=== PATIENT | male | born 1975 | race Caucasian/White ===

== ENCOUNTER 2016-10-16 14:36 | Inpatient (IN) ==
[2016-10-16] MEDS ORDERED: ACETAMINOPHEN 500 MG TABLET PO PRN (15:02)
[2016-10-16] MEDS ORDERED: ONDANSETRON 4 MG/2 ML VIAL IV PRN (15:02)
[2016-10-16] MEDS ORDERED: VANCOMYCIN INJ 1,000 MG in SODIUM CHLORIDE 0.9% 250 ML IV STA (15:02)
--- NOTE | 2016-10-16 15:13 | Emergency Department Note ---
George Mata Brittany, am scribing for, and in the presence of, Oswaldo Negrete MD 15:02. Caden Mata Sunil, MD, personally performed the services described in this documentation, ascribed by Mali Vazquez in my presence, and it is both accurate and complete 512 . Arrival - Arrival Chief Complaint: Abscess Stated Complaint: abscess ED Nursing Triage Note: c/o abscess to upper abdomen onset 10/02/16. Mode of Arrival: Ambulatory Limitations: No Limitations Source: Patient, RN Notes Reviewed Time Seen by Provider: 10/16/16 14:58 - History of Present Illness HPI Narrative: Patient is a 41 y/o white male presenting to the ED by EMS with c/o upper abdominal abscess which began on 10/02/16. Patient reports that despite antibiotic therapy, the area has began to increase in redness, size, and has become hard/tender to touch. Pain is so severe, hindering him to get adequate rest at night. He has tried draining this area at home, but with no success. Patient appears to have a spreading Cellulitis of the abdomen with an area of enduration, may be a possible deep rooted abdominal abscess. Patient has no other complaint/pain. Onset (ago): day(s) Consistency: constant Allergies/Adverse Reactions: Allergies Allergy/AdvReac Type Severity Reaction Status Date / Time Penicillins Allergy ANAPHYLAXIS Verified 10/16/16 14:52 Review of System - Review of System 12 point system: reviewed and no additional remarkable complaints except as stated - Review of System Constitutional: Absent: chills, fever Eyes: Absent: vision change Head/Ears/Nose/Throat: Absent: nasal drainage, sore throat Respiratory: Absent: respiratory distress Cardiovascular: Absent: chest pain Gastrointestinal: Present: abdominal pain. Absent: nausea, vomiting, diarrhea, constipation Genitourinary male: Absent: urgency, dysuria, frequency Musculoskeletal: Absent: arm pain, back pain, leg pain, neck pain Skin: Present: as per HPI (abscess to the abdomen) Medical,Surgical,& Family Hx - Medical History Medical History: noncontributory - Surgical History Surgical History: noncontributory - Family History Family History: noncontributory - Social History Smoking Status: Never smoker Frequency of Alcohol Use: None Type of Drug Use: None Exam Vital Signs: Vital Signs Temperature 99.2 F 10/16/16 14:36 Pulse Rate 93 H 10/16/16 14:36 Respiratory Rate 20 10/16/16 14:36 Blood Pressure 129/82 10/16/16 14:36 O2 Sat by Pulse Oximetry 97 10/16/16 14:36 - General General appearance: alert, in no apparent distress - Head Head exam: Present: atraumatic, normocephalic, normal inspection - Eye Eye exam: Present: normal appearance, PERRL, EOMI - ENT ENT exam: Present: normal exam, normal oropharynx - Neck Neck exam: Present: normal inspection, full ROM, trachea midline - Chest Chest inspection: Present: normal inspection, symmetric chest wall rise - Respiratory Respiratory exam: Present: normal lung sounds bilaterally - Cardiovascular Cardiovascular exam: Present: regular rate, normal rhythm, normal heart sounds - Abdominal Exam Abdominal exam: Present: soft, tenderness (upper abdominal tenderness to palpation at site of abscess), normal bowel sounds, other (palpable hardness at abscess site, erythema. Patient appears to have a spreading cellulitis of the abdomen with an area of enduration, possible deep rooted abdominal abscess) - Extremities Exam Extremities exam: Present: normal inspection - Back Exam Back exam: Present: normal inspection - Neurological Exam Neurological exam: Present: alert, oriented X3, CN II-XII intact. Absent: motor sensory deficit - Psychiatric Psychiatric exam: Present: normal affect, normal mood - Skin Skin exam: Present: warm, dry, other (Patient appears to have a spreading cellulitis of the abdomen with an area of enduration, possible deep rooted abdominal abscess) Results - Impressions This patient had incision and drainage of this abscess on the abdominal wall twice, and he finished 2 courses of antibiotic but still has a lot of induration and spreading cellulitis on the abdominal wall I have admitted him to Dr. Dr. Waggoner with a diagnosis of cellulitis of the abdominal wall possible deep-rooted abscess failed outpatient treatment Disposition Clinical Impression: Cellulitis Case discussed with: patient Disposition: Still a Patient
[2016-10-16 15:37] LABS: Basophils # 0.1 10*3/uL (0.0-0.2); Basophils % 0.4 % (0.0-0.8); Eosinophils # 0.1 10*3/uL (0.0-0.87); Eosinophils % 0.9 % (0.00-10.9); Hematocrit 43.1 VOL% (42.0-52.0); Hemoglobin 15.1 GM/DL (14.0-18.0); Immature Granulocytes % 0.5 %; Immature Granulocytes Absolute 0.06 #; Lymphocytes # 2.2 10*3/uL (1.4-4.0); Lymphocytes % 17.1 % (21.2-54.2); Mean Corpuscular Hemoglobin 31 PG (27-34); Mean Corpuscular Volume 87.1 FL (87-102); Mean Platelet Volume 9.6 FL (9.6-12.0); Monocytes # 0.6 10*3/uL (0.11-0.8); Neutrophils # 9.6 10*3/uL (1.4-7.4); Neutrophils % 76.1 % (38.7-73.9); Platelet Count 297 T/CUMM (130-400); Red Blood Count 4.95 MC/CUMM (3.8-5.5); Red Cell Distribution Width 12.2 % (9.3-17.3); White Blood Count 12.6 T/CUMM (4-12)
[2016-10-16] MEDS ORDERED: VANCOMYCIN 1,000 MG VIAL ONE (15:40)
[2016-10-16 15:55] LABS: Albumin 3.9 G/DL (3.4-5.0); Bilirubin,Direct 0.2 MG/DL (0.0-0.20); Bilirubin,Indirect 0.5 MG/DL (0.0-1.0); Bilirubin,Total 0.7 MG/DL (0.2-1.0); Calcium 8.8 MG/DL (8.5-10.1); Osmolality,Calculated 278.4 MOS/KG (273-304); Total Protein 7.2 G/DL (6.4-8.3)
[2016-10-16 15:58] LABS: Lactic Acid 1.2 MMOL/L (0.4-2.0)
[2016-10-16] MEDS ORDERED: ACETAMINOPHEN 500 MG TABLET ONE (16:06)
--- NOTE | 2016-10-16 21:28 | General Surgery Consult Note ---
Assessment and Plan (1) Abscess Status: Acute Assessment and plan: This patient is admitted with an abscess of the abdominal wall. I have recommended an incision and drainage in the operating room tomorrow. The patient is agreeable to this. Current Visit: Yes History of Present Illness Chief complaint: abdominal pain History of present illness: Mr. Nunez is a 41 year old male with no past medical history admitted to the hospital with cellulitis of his abdominal wall. He has been treated in the past with incision and drainage in the ER. Cultures grew MRSA. He has been on oral bactrim, but his pain has been worsening. He was admitted with fevers. Home Medications Medication Instructions Recorded Confirmed Type Clindamycin HCl [Clindamycin Cap] 300 mg PO Q8HR 10/16/16 10/16/16 History FLUoxetine [PROzac] 10 mg PO DAILY 10/16/16 10/16/16 History Allergies Allergy/AdvReac Type Severity Reaction Status Date / Time Penicillins Allergy ANAPHYLAXIS Verified 10/16/16 14:52 Medical,Surgical,& Family Hx - Medical History Gastrointestinal: History of: GI Problems (IBS) - Surgical History HEENT Surgeries: Surgical HX of: Tonsilectomy & Adenoidectomy Abdominal Surgeries: Surgical HX of: Cholecystectomy - Social History Smoking Status: Never smoker Frequency of Alcohol Use: None Type of Drug Use: None - Constitutional Constitutional: Present: as per HPI - EENT Nose, mouth and throat: Present: as per HPI - Cardiovascular Cardiovascular: Present: as per HPI - Respiratory Respiratory: Present: as per HPI - Gastrointestinal Gastrointestinal: Present: as per HPI - Genitourinary Genitourinary: Present: as per HPI - Musculoskeletal Musculoskeletal: Present: as per HPI - Neurological Neurological: Present: as per HPI - Endocrine Endocrine: Present: as per HPI Hematologic/Lymphatic: Present: as per HPI Exam - Constitutional Vitals: Period Temp Pulse Resp BP Sys/Ragsdale Pulse Ox Last 24 Hr 98.7 F-102.0 F 90-94 16-20 119-129/70-82 95-98 General appearance: no acute distress, over weight - Head Head exam: Present: normal inspection, normocephalic - Eye Eye exam: Present: EOMI Pupils: Present: ADAM - ENT ENT exam: Present: normal exam Mouth exam: Present: normal external inspection, normal voice - Neck Neck exam: Present: normal inspection, trachea midline - Respiratory Respiratory exam: Present: clear to auscultation bilaterally. Absent: accessory muscle use, chest wall tenderness - Cardiovascular Cardiovascular exam: Present: RRR. Absent: systolic murmur, tachycardia - GI/Abdominal GI/Abdominal exam: Present: tenderness (tenderness over the abdominal wall), soft, other (There is an abscess of the abdominal wall measuring 8 x 5cm with induration and fluctuance) - Extremities Exam Extremities exam: Present: normal inspection, normal capillary refill - Back Exam Back exam: Present: normal inspection - Neurological Exam Neurological exam: Present: alert, oriented X3 Speech: Present: normal - Skin Skin exam: Present: normal color, warm Quality Measures - VTE Contraindication to Pharmacological VTE Prophylaxis: Clinical assessment deems Pt at low risk, no prophalaxis needed Results - Labs CBC & BMP: 10/16/16 15:27 10/16/16 15:27
[2016-10-16] MEDS: HYDROmorphone 2 MG/1 ML VIAL IV PRN (22:32)
[2016-10-16] MEDS: VANCOMYCIN INJ 1,250 MG in SODIUM CHLORIDE 0.9% 250 ML IV SCH (23:10)
[2016-10-17] MEDS ORDERED: LORazepam 1 MG TABLET PO ONE (05:49)
[2016-10-17] MEDS ORDERED: FAMOTIDINE 20 MG TABLET PO ONE (05:49)
[2016-10-17] MEDS ORDERED: BUPIVACAINE 0.25% 50 ML VIAL ONE (06:33)
[2016-10-17] MEDS ORDERED: LIDOCAINE 2% 5 ML VIAL ONE (07:05)
[2016-10-17] MEDS ORDERED: PROPOFOL 200 MG/20 ML VIAL IV ONE (07:05)
[2016-10-17] MEDS ORDERED: KETOROLAC 30 MG/1 ML VIAL ONE (07:05)
[2016-10-17] MEDS ORDERED: ONDANSETRON 4 MG/2 ML VIAL ONE ×2 (07:05→08:18)
--- NOTE | 2016-10-17 07:32 | Family Practice Progress Note ---
Family Practice - PN: Subj Interval history: Patient was taken surgery before I could see the patient. Exam (Progress Note) - Constitutional Vitals: Period Temp Pulse Resp BP Sys/Ragsdale Pulse Ox Last 24 Hr 97.6 F-102.0 F 68-94 16-20 106-135/70-86 95-98 Results - Labs CBC & BMP: 10/16/16 15:27 10/16/16 15:27 Quality Measures - VTE Contraindication to Pharmacological VTE Prophylaxis: Clinical assessment deems Pt at low risk, no prophalaxis needed
--- NOTE | 2016-10-17 07:35 | Operative Note ---
Date of procedure: 10/17/16 Pre-op diagnosis: Abdominal wall abscess Post-op diagnosis: same Procedure: Preoperative diagnosis Abdominal wall abscess Postoperative diagnosis Same Procedures performed Incision and drainage of complex abdominal wall abscess Findings A large abscess cavity was multiloculated was opened up in the abdominal wall subcutaneous tissue. Pus was drained and sent for cultures. Complications None apparent Specimen Cultures Anesthesia General LMA Blood loss Minimal Indications Abdominal wall abscess Description of procedure The patient was taken to the operating room and transferred to the operating table in supine position. Pressure points were padded and SCDs were placed to bilateral lower extremities. General anesthesia was administered with an LMA and the abdomen was prepped chlorhexidine and draped sterilely. Timeout was called. The abscess was drained with an 11 blade scalpel. Loculations were broken up digitally. Pus was drained and sent for cultures. This was a large abscess cavity but there is no necrotic tissue. It was irrigated copiously and packed with a Dakin's soaked with a dry dressing. This was covered with a dry dressing and the patient was awakened from anesthesia and transferred to recovery. Postoperative plan Wound care and antibiotics Follow-up cultures Anesthesia: JUMAA Surgeon / Physician: Scott Leyva Estimated blood loss: minimal Specimens: other (cultures) Condition: stable Disposition: PACU Results - Labs CBC & BMP: 10/16/16 15:27 10/16/16 15:27 Discharge Plan - Discharge Medications No Action Clindamycin HCl [Clindamycin Cap] 300 mg PO Q8HR FLUoxetine [PROzac] 10 mg PO DAILY - Follow Up or Referral - Forms/Instructions
[2016-10-17] MEDS ORDERED: SEVOFLURANE 1 UNIT/15 MINUTE INH ONE (07:54)
[2016-10-17] MEDS ORDERED: MIDAZOLAM 2 MG/2 ML VIAL ONE (07:54)
[2016-10-17] MEDS ORDERED: fentaNYL 100 MCG/2 ML VIAL ONE (07:55)
[2016-10-17] MEDS ORDERED: HYDROmorphone 2 MG/1 ML VIAL IV PRN (08:02)
[2016-10-17] MEDS ORDERED: ONDANSETRON 4 MG/2 ML VIAL IV PRN (08:02)
[2016-10-17] MEDS ORDERED: HYDROmorphone 2 MG/1 ML VIAL ONE (08:18)
[2016-10-17] MEDS ORDERED: LACTATED RINGERS 1,000 ML IV SCH (08:30)
[2016-10-17] MEDS: VANCOMYCIN INJ 1,250 MG in SODIUM CHLORIDE 0.9% 250 ML IV SCH ×2 (09:30→17:38)
[2016-10-17] MEDS: FLUoxetine 10 MG CAPSULE PO SCH (09:34)
--- NOTE | 2016-10-17 10:30 | Anesthesia Post-Op ---
Anesthesia Post OP - Post Ansesthetic Evaluation Patient seen in post op: Yes Resp: within normal limits CV: within normal limits Mental: within normal limits Temp: within normal limits [id number]: within normal limits Nausea and Vomiting: within normal limits Pain: within normal limits
[2016-10-17] MEDS: HYDROmorphone 2 MG/1 ML VIAL IV PRN ×2 (16:38→22:20)
[2016-10-18] MEDS: VANCOMYCIN INJ 1,250 MG in SODIUM CHLORIDE 0.9% 250 ML IV SCH ×2 (00:29→08:24)
[2016-10-18 06:04] LABS: Basophils # 0.1 10*3/uL (0.0-0.2); Basophils % 0.6 % (0.0-0.8); Eosinophils # 0.4 10*3/uL (0.0-0.87); Eosinophils % 4.2 % (0.00-10.9); Immature Granulocytes % 0.5 %; Immature Granulocytes Absolute 0.04 #; Lymphocytes # 2.8 10*3/uL (1.4-4.0); Lymphocytes % 33.9 % (21.2-54.2); Mean Corpuscular HGB Conc 34.2 GM/DL (32-36); Mean Corpuscular Hemoglobin 30 PG (27-34); Monocytes # 0.6 10*3/uL (0.11-0.8); Monocytes % 7.1 % (1.7-12.7); Neutrophils # 4.4 10*3/uL (1.4-7.4); Neutrophils % 53.7 % (38.7-73.9); Platelet Count 259 T/CUMM (130-400); Red Blood Count 4.32 MC/CUMM (3.8-5.5); Red Cell Distribution Width 12.1 % (9.3-17.3); White Blood Count 8.3 T/CUMM (4-12)
[2016-10-18] MEDS: HYDROmorphone 2 MG/1 ML VIAL IV PRN (06:53)
--- NOTE | 2016-10-18 07:33 | Family Practice History&Phys ---
Assessment and Plan (1) Abdominal wall abscess Status: Acute Assessment and plan: 10/18/2016: Patient's had successful incision and drainage of abdominal abscess and is ready for discharge. Current Visit: Yes History of Present Illness Chief complaint: Abdominal abscess History of present illness: Mr. Nunez is a 41 year old male Patient 41-year-old white male presents emergency room with persistent abdominal pain found to have an abscess to anterior abdominal wall and admitted for incision and drainage. Patient has been having fever of up to 102 associated with this. Patient had had an attempted drainage by Dr. Ragsdale at [facility] but apparently this was unsuccessful. Patient was admitted to my services and seen Still Been Taken to the Operating Room Early Yesterday Morning for Successful Incision and Drainage of a Large Amount of Pus. Home Medications Medication Instructions Recorded Confirmed Type Clindamycin HCl [Clindamycin Cap] 300 mg PO Q8HR 10/16/16 10/16/16 History FLUoxetine [PROzac] 10 mg PO DAILY 10/16/16 10/16/16 History Allergies Allergy/AdvReac Type Severity Reaction Status Date / Time Penicillins Allergy ANAPHYLAXIS Verified 10/16/16 14:52 - Constitutional Constitutional: Present: chills, fatigue, fever(s) - EENT Eyes: Absent: blurry vision Ears: Absent: decreased hearing Nose, mouth and throat: Absent: hoarseness, nasal congestion, sinus pressure - Cardiovascular Cardiovascular: Absent: chest pain at rest, palpitations, PND - Respiratory Respiratory: Absent: cough, dyspnea, wheezing - Gastrointestinal Gastrointestinal: Present: abdominal pain (Associated with abdominal wall abscess). Absent: diarrhea, nausea, vomiting - Genitourinary Genitourinary: Absent: dysuria, flank pain - Musculoskeletal Musculoskeletal: Absent: back pain, muscle cramps - Neurological Neurological: Absent: focal weakness, numbness, paresthesias - Psychiatric Psychiatric: Absent: anxiety - Endocrine Endocrine: Absent: fatigue, polydipsia, polyphagia - Hematologic/Lymphatic Hematologic/Lymphatic: Absent: easy bleeding, easy bruising Medical,Surgical,& Family Hx - Medical History Medical History: noncontributory Gastrointestinal: History of: GI Problems (IBS) - Surgical History HEENT Surgeries: Surgical HX of: Tonsilectomy & Adenoidectomy Abdominal Surgeries: Surgical HX of: Cholecystectomy - Family History Family History: noncontributory - Social History Smoking Status: Never smoker Frequency of Alcohol Use: None Type of Drug Use: None Exam - Constitutional Vitals: Period Temp Pulse Resp BP Sys/Ragsdale Pulse Ox Last 24 Hr 97.3 F-100.4 F 73-99 16-20 104-121/51-76 93-100 Exam: General: Objective patient is a well-developed white male in no acute distress. Patient's now status post incision and drainage of abdominal abscess. HEENT: Pupils equal and reactive to light. Patent nares and airway Neck: No meningismus, adenopathy, thyromegaly. There are no auscultated carotid bruits. Cardiovascular: Regular rhythm. No murmurs or gallops Chest: Clear to auscultation without rales rhonchi wheezes. Abdomen: Patient has tenderness anterior abdominal wall and anterior wall abscess that has been drained. Neuro: Cranial nerves intact and DTRs and strength symmetric in all extremities. Dermatologic: No evidence of abnormal lesions or masses. Musculoskeletal: There is no joint swelling or tenderness or deformity. Results - Labs CBC & BMP: 10/18/16 05:04 10/16/16 15:27 Lab Results: I have reviewed the past 24 hour labs Quality Measures - VTE Contraindication to Pharmacological VTE Prophylaxis: Clinical assessment deems Pt at low risk, no prophalaxis needed
--- NOTE | 2016-10-18 07:38 | Discharge Summary ---
Hospital Course - Hospital Course Hospital Course: Patient 41-year-old white male who developed abdominal wall abscess 2-3 weeks before admission. Patient had tried himself to drain the abscess and also had an attempt made at [facility]. These attempts were unsuccessful and patient came to the emergency room was admitted for incision and drainage in the operating room. Patient had immediate relief of his discomfort after drainage and is ready for discharge. Patient's noted to have negative blood cultures. Diagnosis - Discharge Diagnosis (1) Abdominal wall abscess Status: Acute Discharge Plan - Discharge Data Disposition: Disch To Home/Self Care Condition at Discharge: Stable Discharge Diet: advance to your usual diet Activity: resume usual activities as tolerated Hygiene: no restrictions Weight Bearing at Discharge: full weight bearing Driving: no restrictions Contact your physician if you experience:: fever over 101 - Discharge Medications New HYDROcodone/ACETAMIN 7.5-325 [[place] 7.5-325] 1 tablet PO Q6H #20 tablet Sulfameth/Trimeth 800-160 Tab [Bactrim DS Tab] 1 tablet PO BID #14 tablet Continue FLUoxetine [PROzac] 10 mg PO DAILY Discontinued Clindamycin HCl [Clindamycin Cap] 300 mg PO Q8HR - Follow Up or Referral - Forms/Instructions Exam - Constitutional Vitals: Period Temp Pulse Resp BP Sys/Ragsdale Pulse Ox Last 24 Hr 97.3 F-100.4 F 68-99 16-20 103-121/51-76 93-100 Exam: Objective a well-developed gentleman is awake alert states she is ready to go home. His appetite is good he is eating his vital signs are normal and he has no complaints. He was seen by Dr. Leyva this morning had his packing removed. Discharge Results Procedures and tests throughout hospitalization: Pending Orders 10/16/16 15:27 Blood Culture Stat 10/17/16 07:30 Abscess Culture Routine Anaerobic Culture Routine Labs on day of discharge: Labs from last 24 hours 10/18/16 10/17/16 05:04 16:42 WBC 8.3 D RBC 4.32 Hgb 13.0 L D Hct 38.0 L MCV 88.0 MCH 30 MCHC 34.2 RDW 12.1 Plt Count 259 MPV 10.0 Neut % (Auto) 53.7 Lymph % (Auto) 33.9 [place] % (Auto) 7.1 Eos % (Auto) 4.2 Baso % (Auto) 0.6 Neut # (Auto) 4.4 Lymph # (Auto) 2.8 [place] # (Auto) 0.6 Eos # (Auto) 0.4 Baso # (Auto) 0.1 Immature Gran % 0.5 Nucleated RBC % 0.0 Immature Gran # 0.04 Nucleated RBCs # 0.00 Vancomycin Trough 12.1 Preliminary micro results at discharge 10/16/16 15:27 Blood Culture - Preliminary Blood No growth at 1 day 10/16/16 15:27 Blood Culture - Preliminary Blood No growth at 1 day DS: Provider Date of admission: 10/16/16 15:02 Primary care physician: . No PCP Attending physician on admission: Royer Waggoner MD Consults: 10/16/16 16:33 Consult to Physician [CONS] Routine Comment: Consulting Provider: Scott Leyva Consult to Specialist Group: Surgery When should Consulting Provider be notified: Now Person Notified: garry Date Notified: 10/16/16 Time Notified: 17:33 10/16/16 18:01 Consult to Pharmacy [CONS] Routine Reason for Pharmacy Consult: Dose/Manage Vancomycin Discharging clinician: Royer Waggoner MD Expected date of discharge: 10/18/16
[2016-10-18 07:41] VITALS: BP 116/68
--- NOTE | 2016-10-18 07:43 | Event Note ---
41-year-old male admitted by Dr. Royer Waggoner with cellulitis of his abdominal wall on 10/16/2016. He had unsuccessful I&D and [facility] where he grew MRSA. Dr. Leyva was consulted and he took the patient to the OR on 10/17/2016 for I&D of complex abdominal wall abscess. Patient is doing well and the wound is clean. Wound orders are written and he can be DC'd home with [place] and Bactrim DS for 1 week. He will follow-up with Dr. Leyva in his clinic in 1 week as well. Complete discharge instructions were given to the patient.
[2016-10-18] MEDS: FLUoxetine 10 MG CAPSULE PO SCH (08:25)
== END 2016-10-18 11:05 | disposition home or self-care (01) | DRG 581 ==
LOC: EDBD → EDUNIT# → N.ED 14:36 → N.EDINP 15:02 → N.2E 17:00
PROVIDERS: ADMIT Family Medicine; ATTEND Family Medicine